=== PATIENT | male | born 1945 | race Caucasian/White ===

== ENCOUNTER 2016-11-28 09:58 | Emergency (ER) | payer MEDICARE ==
[~2016-11-28] VITALS: Ht 182.9 cm; Wt 101.2 kg
[~2016-11-28 09:58] MED LIST: DOXA4TAB2 PO; ESCI10TA PO; ISOS30TA6 PO; METF-303 PO; METO25TA3 PO; PRAV20TA PO; TEMA30CA5 PO
[2016-11-28 10:05] VITALS: BP_SYST 157
--- NOTE | 2016-11-28 10:10 | NUR ---
Patient to ER bed 8 to gown for evaluation. Side rails up. Report given to HAN REAGAN.
--- NOTE | 2016-11-28 10:13 | NUR ---
ER at bedside examining patient.
--- NOTE | 2016-11-28 10:15 | NUR ---
PT PRESENTS TO ED C/O SOB X 1 WEEK. PT HAS NO ACUTE DISTRESS NOTED.PT H/O NIDDM,HTN AND R PARTIAL HEMIPARESIS.PT HAS SLIGHT DIMINISHED BREATH SOUNDS LLL.
--- NOTE | 2016-11-28 10:25 | NUR ---
RT AT BEDISDE FOR BREATHING TX.
[2016-11-28] MEDS ORDERED: DEXAMETHASONE SOD PHOSPHATE 10 MG/ML VIAL IVP ONE (10:30)
[2016-11-28] MEDS ORDERED: IPRATROPIUM/ALBUTEROL SULFATE 3 ML AMPUL.NEB INH ONE (10:30)
--- NOTE | 2016-11-28 10:41 | NUR ---
PT TOLERATED BREATHING TX.PT REPORTS DECREASE IN RESP EFFORT
--- NOTE | 2016-11-28 10:52 | NUR ---
PT MEDICATED. PT TOLERATED WELL.
--- NOTE | 2016-11-28 10:53 | NUR ---
PT MEDICATED TOLERATED WELL.
[2016-11-28 10:54] LABS: BASOPHILS # (AUTO) 0.1 K/uL (0.0-0.2); BASOPHILS % (AUTO) 1.4 % (0.0-2.0); EOSINOPHILS # (AUTO) 0.2 K/uL (0.0-0.4); EOSINOPHILS % (AUTO) 1.5 % (0.0-4.0); HEMATOCRIT 40.9 % (36-54); HEMOGLOBIN 13.7 g/dL (14.0-18.0); LYMPHOCYTES % (AUTO) 28.2 % (20.5-51.5); MEAN CORPUSCULAR HEMOGLOBIN 30 pg (27-31); MEAN CORPUSCULAR HGB CONC 34 % (32-36); MEAN CORPUSCULAR VOLUME 88 fL (79.0-98.0); MONOCYTES # (AUTO) 0.7 K/uL (0.0-1.0); MONOCYTES % (AUTO) 6.9 % (1.7-9.3); NEUTROPHILS # (AUTO) 6.5 K/uL (1.8-7.7); PLATELET COUNT (AUTO) 209 K/uL (130-430); RED BLOOD CELL COUNT(AUTO) 4.63 MIL/uL (4.2-6.2); RED CELL DISTRIBUTION WIDTH 12.4 % (9.0-15.0); WHITE BLOOD COUNT (AUTO) 10.5 K/uL (4.8-10.8)
[2016-11-28 11:03] LABS: CREATININE 1.03 mg/dL (0.55-1.30); POTASSIUM 3.9 mmol/L (3.5-5.1)
[2016-11-28 11:05] LABS: PROTHROMBIN TIME 10.5 SECS (9.5-12.5)
[2016-11-28 11:07] LABS: ALBUMIN 3.9 g/dL (3.4-4.8); TOTAL BILIRUBIN 0.8 mg/dL (0.0-1.0); TOTAL PROTEIN, SERUM 7.7 g/dL (6.4-8.3)
--- NOTE | 2016-11-28 11:50 | NUR ---
PT REPORTS BREATHING IMPROVED.PT HAS NO ACUTE RESP DISTRESS NOTED.
[2016-11-28 13:00] VITALS: BP_SYST 162
--- NOTE | 2016-11-28 13:07 | NUR ---
Patient given written and verbal discharge instructions and verbalizes understanding. ER MD discussed with patient the results and treatment provided. Patient in stable condition. ID arm band removed. IV catheter removed intact and dressing applied, no active bleeding. Rx of Z-PACK,TESSLON PERLES,PREDNISONE given. Patient educated on pain management and to follow up with PMD. Pain Scale 0. Opportunity for questions provided and answered.
--- NOTE | 2016-11-28 13:30 | NUR ---
Received a call from [facility] requesting a clarification for Azythromycin due to interaction with patient medication Lexapro (possible QT prolongation), MD Dr Schneider notified, per Dr Schneider prescription needs to be changed to Doxycicline 100 mg PO BID x 7 days, order clarified to [facility].
== END 2016-11-28 13:07 | disposition home or self-care (01) ==
LOC: SED 09:58
DX: J20.9 Acute bronchitis, unspecified (principal); E11.9 Type 2 diabetes mellitus without complications; I10 Essential (primary) hypertension; Z88.0 Allergy status to penicillin; Z88.5 Allergy status to narcotic agent; Z91.048 Other nonmedicinal substance allergy status; Z85.038 Personal history of other malignant neoplasm of large intestine
CPT/HCPCS: 36415; 71010; 80053; 83605; 83880; 84484; 85025; 85379; 85610; 85730; 87040; 93005; 94640; 96374; 99285; J1100

== ENCOUNTER 2020-04-27 06:43 | Observation (INO) | payer OTHER, SELFPAY ==
[~2020-04-27] VITALS: Ht 182.9 cm; Wt 108.9 kg
[~2020-04-27 06:43] MED LIST changes: -METF-303 PO; +METF-379 PO
[2020-04-27 06:48] VITALS: BP_SYST 172
[2020-04-27 07:35] LABS: BASOPHILS # (AUTO) 0.1 K/uL (0.0-0.2); BASOPHILS % (AUTO) 0.8 % (0.0-2.0); EOSINOPHILS # (AUTO) 0.2 K/uL (0.0-0.4); EOSINOPHILS % (AUTO) 1.9 % (0.0-4.0); HEMATOCRIT 38.4 % (36-54); HEMOGLOBIN 12.7 g/dL (14.0-18.0); LYMPHOCYTES # (AUTO) 2.8 K/uL (1.0-5.5); LYMPHOCYTES % (AUTO) 28.2 % (20.5-51.5); MEAN CORPUSCULAR HEMOGLOBIN 30 pg (27-31); MEAN CORPUSCULAR HGB CONC 33 % (32-36); MEAN CORPUSCULAR VOLUME 90 fL (79.0-98.0); MONOCYTES # (AUTO) 0.8 K/uL (0.0-1.0); MONOCYTES % (AUTO) 8.5 % (1.7-9.3); NEUTROPHILS % (AUTO) 60.6 % (40.0-70.0); PLATELET COUNT (AUTO) 176 K/uL (130-430); RED BLOOD CELL COUNT(AUTO) 4.28 MIL/uL (4.2-6.2); RED CELL DISTRIBUTION WIDTH 14.4 % (9.0-15.0); WHITE BLOOD COUNT (AUTO) 9.9 K/uL (4.8-10.8)
[2020-04-27 07:44] LABS: ANION GAP 9 (5-15); CALCIUM 9.6 mg/dL (8.4-11.0); CHLORIDE 106 mmol/L (98-107); CREATININE 1.19 mg/dL (0.55-1.30); GLUCOSE 133 mg/dL (70-99); POTASSIUM 3.9 mmol/L (3.5-5.1); SODIUM SERUM 143 mmol/L (136-145); UREA NITROGEN, BLOOD 29 mg/dL (8-21)
[2020-04-27 07:48] LABS: PROTHROMBIN TIME 9.9 SECS (9.5-12.5)
[2020-04-27 07:49] LABS: ALANINE AMINOTRANSFERASE 52 U/L (12-78); ALBUMIN 3.7 g/dL (3.4-4.8); ASPARTATE AMINOTRANSFERASE 40 U/L (10-37); TOTAL BILIRUBIN 0.9 mg/dL (0.0-1.0)
[2020-04-27 08:16] LABS: BILIRUBIN,URINE NEGATIVE (NEGATIVE); BLOOD, URINE NEGATIVE (NEGATIVE); CLARITY/URINE CLEAR (CLEAR); COLOR,URINE YELLOW (YELLOW); GLUCOSE,URINE NEGATIVE (NEGATIVE); KETONES,URINE TRACE (NEGATIVE); LEUKOCYTE ESTERASE ,URINE NEGATIVE (NEGATIVE); NITRITE, URINE NEGATIVE (NEGATIVE); PROTEIN URINE NEGATIVE (NEGATIVE)
[2020-04-27 08:25] LABS: BARBITURATE, URINE NEGATIVE (NEG <=200); METHAMPHETAMINES SCREEN,URINE NEGATIVE (NEG <=500); URINE AMPHETAMINE NEGATIVE (NEG <=500); URINE METHADONE NEGATIVE (NEG <=200)
[2020-04-27 08:26] LABS: BENZODIAZEPINE, URINE POSITIVE (NEG <=150); CANNABINOID, URINE NEGATIVE (NEG <=50); COCAINE, URINE NEGATIVE (NEG <=150); OPIATE, URINE POSITIVE (NEG <=100); PHENCYCLIDINE SCREEN,URINE NEGATIVE (NEG <=25); UR TRICYCLIC ANTIDEPRESSANTS NEGATIVE (NEG <=300); URINE OXYCODONE SCREEN NEGATIVE (NEG <=100); URINE PROPOXYPHENE SCREEN NEGATIVE (NEG <=300)
[2020-04-27 09:20] VITALS: BP_SYST 152
[2020-04-27] MEDS ORDERED: DEXTROSE 50% JECT 50 ML DISP.SYRIN IVP PRN (10:00)
[2020-04-27] MEDS ORDERED: INSULIN REGULAR, HUMAN 100 UNITS/ML, 10 ML VIAL (humuLIN R) SUBCUT PRN (10:00)
[2020-04-27] MEDS ORDERED: ATORVASTATIN 10 MG TABLET PO ONE (10:15)
[2020-04-27] MEDS ORDERED: DOXAZOSIN MESYLATE 2 MG TABLET PO ONE (10:15)
[2020-04-27] MEDS ORDERED: ISOSORBIDE MONONITRATE 30 MG TAB.ER.24H PO ONE (10:15)
[2020-04-27] MEDS ORDERED: METOPROLOL SUCCINATE 25 MG TAB.SR.24H (TOPROL XL) PO ONE (10:15)
[2020-04-27] MEDS ORDERED: metFORMIN HCL 500 MG TABLET PO ONE (10:15)
[2020-04-27] MEDS ORDERED: CITALOPRAM HYDROBROMIDE 20 MG TABLET PO ONE (10:15)
[2020-04-27 11:24] VITALS: BP_SYST 147
[2020-04-27] MEDS ORDERED: HYDROcodone/ACETAMIN 7.5-325 MG TAB PO PRN (14:00)
[2020-04-27] MEDS: HYDROcodone/ACETAMIN 7.5-325 MG TAB PO PRN (14:23)
[2020-04-27 15:35] VITALS: BP_SYST 147
[2020-04-27] MEDS: metFORMIN HCL 500 MG TABLET PO SCH (17:45)
[2020-04-27 19:00] VITALS: BP_SYST 137
[2020-04-27 20:00] VITALS: BP_SYST 137
[2020-04-27] MEDS ORDERED: PANTOPRAZOLE SODIUM 40 MG TAB PO ONE (23:45)
[2020-04-27] MEDS ORDERED: OMEPRAZOLE Non-Formulary 20 MG CAPSULE.DR PO SCH (23:45)
[2020-04-27] MEDS ORDERED: TEMAZEPAM 15 MG CAPSULE PO ONE (23:45)
[2020-04-28 00:03] VITALS: BP_SYST 131
[2020-04-28] MEDS: HYDROcodone/ACETAMIN 7.5-325 MG TAB PO PRN (06:03)
[2020-04-28 08:00] VITALS: BP_SYST 137
[2020-04-28] MEDS: metFORMIN HCL 500 MG TABLET PO SCH (08:42)
[2020-04-28] MEDS ORDERED: CITALOPRAM HYDROBROMIDE 20 MG TABLET PO SCH (09:00)
[2020-04-28] MEDS ORDERED: ISOSORBIDE MONONITRATE 30 MG TAB.ER.24H PO SCH (09:00)
[2020-04-28] MEDS ORDERED: DOXAZOSIN MESYLATE 2 MG TABLET PO SCH (09:00)
[2020-04-28] MEDS ORDERED: METOPROLOL SUCCINATE 25 MG TAB.SR.24H (TOPROL XL) PO SCH (09:00)
[2020-04-28] MEDS ORDERED: ATORVASTATIN 10 MG TABLET PO SCH (09:00)
[2020-04-28] MEDS ORDERED: PANTOPRAZOLE SODIUM 40 MG TAB PO SCH (09:00)
[2020-04-28] MEDS ORDERED: FLU VACC QS2020-21(65UP)/PF 0.7 ML/SYRINGE I.M. PRN (09:15)
[2020-04-28 10:31] LABS: CHOLESTEROL 134 mg/dL (<200); HDL CHOLESTEROL 50 mg/dL (>45); LDL CHOLESTEROL 56 mg/dL (<100); TRIGLYCERIDES 230 mg/dL (30-150)
[2020-04-28 12:00] VITALS: BP_SYST 129
[2020-04-28] MEDS ORDERED: LORazepam 2 MG/ML VIAL IVP ONE (13:45)
[2020-04-28] MEDS ORDERED: OMEPRAZOLE Non-Formulary 20 MG CAPSULE.DR PO SCH (13:45)
[2020-04-28 15:47] VITALS: BP_SYST 127
[2020-04-28 16:28] VITALS: BP_SYST 127
[2020-04-28] MEDS ORDERED: TEMAZEPAM 15 MG CAPSULE PO SCH (21:00)
== END 2020-04-28 17:20 | disposition home or self-care (01) ==
LOC: SED 06:43 → STU 08:33
PROVIDERS: ADMIT Internal Medicine Hospice and Palliative Medicine; ATTEND Internal Medicine Hospice and Palliative Medicine
DX: G45.4 Transient global amnesia (principal); Z20.828 Contact with and (suspected) exposure to other viral communicable diseases; M48.02 Spinal stenosis, cervical region; G99.2 Myelopathy in diseases classified elsewhere; G83.81 Brown-Sequard syndrome; F32.9 Major depressive disorder, single episode, unspecified; E11.9 Type 2 diabetes mellitus without complications; E78.5 Hyperlipidemia, unspecified; I10 Essential (primary) hypertension; J44.9 Chronic obstructive pulmonary disease, unspecified; R53.1 Weakness; Z88.0 Allergy status to penicillin; Z79.899 Other long term (current) drug therapy; Z85.038 Personal history of other malignant neoplasm of large intestine; Z98.1 Arthrodesis status; Z87.891 Personal history of nicotine dependence
CPT/HCPCS: 36415 ×2; 70450; 70551; 71045; 80053; 80061; 80307; 81003; 82962 ×2; 84484; 85025; 85610; 85730; 86886; 86900; 86901; 87426; 93005; 93880; 96374; 97110; 97116 ×2; 97162; 99285; G0378 ×2; J1815; J2060

== ENCOUNTER 2022-08-23 10:31 | Day surgery (SDC) | payer OTHER ==
[~2022-08-23] VITALS: Ht 182.9 cm; Wt 104.3 kg
[~2022-08-23 10:31] MED LIST changes: +AMLO5TAB4 PO; +ASPI-1047 PO; +BACL5TAB PO; +CIPR500T5 PO; +CLOP75TA32 PO; -ISOS30TA6 PO; +ISOS30TA85 PO; +LEVO-62 PO; +LYR50 PO; +OMEP-268 PO; +TAMS-11 PO; +TRAM50TA PO
[2022-08-23 18:20] VITALS: BP_SYST 164
== END 2022-08-24 18:26 | disposition home or self-care (01) ==
LOC: SDS 10:31 → SMU 10:32 → SDS 08-24 18:26
PROVIDERS: ATTEND Colon & Rectal Surgery
DX: R19.5 Other fecal abnormalities (principal); D64.9 Anemia, unspecified; K29.80 Duodenitis without bleeding; K44.9 Diaphragmatic hernia without obstruction or gangrene; K57.30 Diverticulosis of large intestine without perforation or abscess without bleeding; K29.50 Unspecified chronic gastritis without bleeding; K62.5 Hemorrhage of anus and rectum; I12.9 Hypertensive chronic kidney disease with stage 1 through stage 4 chronic kidney disease, or unspecified chronic kidney disease; E11.22 Type 2 diabetes mellitus with diabetic chronic kidney disease; N18.30 Chronic kidney disease, stage 3 unspecified; Z88.0 Allergy status to penicillin; Z88.1 Allergy status to other antibiotic agents; Z88.8 Allergy status to other drugs, medicaments and biological substances; Z79.899 Other long term (current) drug therapy; Z20.822 Contact with and (suspected) exposure to COVID-19
CPT/HCPCS: 36415 ×2; 45378; 43239; 87426; 88305; 82962; 82948; 88312; 88313; U0003

== ENCOUNTER 2022-10-10 08:45 | Emergency (ER) | payer OTHER ==
[~2022-10-10] VITALS: Ht 182.9 cm; Wt 102.1 kg
[2022-10-10 08:45] VITALS: BP_SYST 145
[2022-10-10 09:16] LABS: BASOPHILS % (AUTO) 0.5 % (0.0-2.0); EOSINOPHILS # (AUTO) 0.2 K/uL (0.0-0.4); EOSINOPHILS % (AUTO) 2.4 % (0.0-4.0); HEMATOCRIT 36.3 % (36-54); HEMOGLOBIN 11.9 g/dL (14.0-18.0); LYMPHOCYTES # (AUTO) 4.2 K/uL (1.0-5.5); LYMPHOCYTES % (AUTO) 55.6 % (20.5-51.5); MEAN CORPUSCULAR HEMOGLOBIN 29 pg (27-31); MEAN CORPUSCULAR HGB CONC 33 % (32-36); MEAN CORPUSCULAR VOLUME 87 fL (79.0-98.0); MONOCYTES # (AUTO) 0.7 K/uL (0.0-1.0); MONOCYTES % (AUTO) 9.6 % (1.7-9.3); NEUTROPHILS # (AUTO) 2.4 K/uL (1.8-7.7); NEUTROPHILS % (AUTO) 31.9 % (40.0-70.0); PLATELET COUNT (AUTO) 148 K/uL (130-430); RED BLOOD CELL COUNT(AUTO) 4.16 MIL/uL (4.2-6.2); RED CELL DISTRIBUTION WIDTH 14.2 % (9.0-15.0); WHITE BLOOD COUNT (AUTO) 7.6 K/uL (4.8-10.8)
[2022-10-10 09:24] LABS: ANION GAP 8 (5-15); CHLORIDE 102 mmol/L (98-107); GLUCOSE 118 mg/dL (70-99); UREA NITROGEN, BLOOD 30 mg/dL (8-21)
[2022-10-10 09:40] LABS: ALANINE AMINOTRANSFERASE 29 U/L (12-78); ALBUMIN 3.4 g/dL (3.4-4.8); ASPARTATE AMINOTRANSFERASE 17 U/L (10-37); TOTAL BILIRUBIN 0.8 mg/dL (0.0-1.0)
[2022-10-10] MEDS ORDERED: IPRATROPIUM BROM 0.5 MG/2.5 ML VIAL.NEB (ATROVENT) INH ONE (11:00)
[2022-10-10] MEDS ORDERED: ALBUTEROL SULFATE 0.083% 2.5 MG/3 ML VIAL.NEB INH ONE (11:00)
[2022-10-10] MEDS ORDERED: ALBMDI INH (11:25)
[2022-10-10] MEDS ORDERED: PRED20TA PO (11:25)
[2022-10-10 12:18] VITALS: BP_SYST 137
== END 2022-10-10 12:23 | disposition home or self-care (01) ==
LOC: SED 08:45
DX: J40 Bronchitis, not specified as acute or chronic (principal); R05.9 Cough, unspecified; R06.02 Shortness of breath; E11.9 Type 2 diabetes mellitus without complications; I10 Essential (primary) hypertension; Z88.0 Allergy status to penicillin; Z88.1 Allergy status to other antibiotic agents; Z88.6 Allergy status to analgesic agent; Z79.899 Other long term (current) drug therapy; Z20.822 Contact with and (suspected) exposure to COVID-19
CPT/HCPCS: 80053; 83880; 85025; 84484; 36415; 93005; 71045; 94640; 99285; 83605; 87804 ×2; 87426; J7613

== ENCOUNTER 2023-09-12 07:04 | Day surgery (SDC) | payer OTHER ==
[~2023-09-12] VITALS: Ht 182.9 cm; Wt 104.3 kg
[~2023-09-12 07:04] MED LIST changes: +ALBMDI INH; +CLINDAMYCIN PHOS 900 MG/ D5W 50 ML PREMIX IV ONE; +DOXA-8 PO; -DOXA4TAB2 PO; +PRED20TA PO
[2023-09-12 08:09] LABS: BASOPHILS % (AUTO) 0.5 % (0.0-2.0); EOSINOPHILS # (AUTO) 0.1 K/uL (0.0-0.4); EOSINOPHILS % (AUTO) 0.8 % (0.0-4.0); HEMATOCRIT 40.4 % (36-54); HEMOGLOBIN 13.7 g/dL (14.0-18.0); LYMPHOCYTES # (AUTO) 2.7 K/uL (1.0-5.5); LYMPHOCYTES % (AUTO) 28.2 % (20.5-51.5); MEAN CORPUSCULAR HEMOGLOBIN 30 pg (27-31); MEAN CORPUSCULAR HGB CONC 34 % (32-36); MEAN CORPUSCULAR VOLUME 90 fL (79.0-98.0); MONOCYTES # (AUTO) 0.8 K/uL (0.0-1.0); MONOCYTES % (AUTO) 8.1 % (1.7-9.3); NEUTROPHILS # (AUTO) 5.9 K/uL (1.8-7.7); NEUTROPHILS % (AUTO) 62.4 % (40.0-70.0); PLATELET COUNT (AUTO) 226 K/uL (130-430); RED BLOOD CELL COUNT(AUTO) 4.52 MIL/uL (4.2-6.2); RED CELL DISTRIBUTION WIDTH 13.5 % (9.0-15.0); WHITE BLOOD COUNT (AUTO) 9.4 K/uL (4.8-10.8)
[2023-09-12 08:23] LABS: ANION GAP 14 (5-15); CALCIUM 9.9 mg/dL (8.4-11.0); CARBON DIOXIDE 26 mmol/L (23-29); CHLORIDE 104 mmol/L (98-107); CREATININE 1.58 mg/dL (0.55-1.30); GLUCOSE 153 mg/dL (74-106); POTASSIUM 4.1 mmol/L (3.5-5.1); SODIUM SERUM 144 mmol/L (136-145); UREA NITROGEN, BLOOD 23 mg/dL (8-21)
[2023-09-12] MEDS ORDERED: SIMETHICONE 40 MG/0.6 ML ML ONE (08:49)
[2023-09-12] MEDS ORDERED: PROPOFOL 200MG/ 20ML VIAL (DIPRIVAN) IV ONE (09:45)
[2023-09-12] MEDS ORDERED: NS 1000 ML IV.SOLN IV ONE (09:45)
[2023-09-12] MEDS ORDERED: ONDANSETRON HCL 4 MG/2 ML VIAL IVP PRN (10:15)
[2023-09-12] MEDS ORDERED: HYDROmorphone 1 MG/ML INJ. CARTRIDGE IVP PRN ×2 (10:15)
[2023-09-12] MEDS ORDERED: LR 1,000 ML IV SCH (10:15)
[2023-09-12] MEDS ORDERED: LABETALOL HCL 20 MG/4 ML CARTRIDGE IVP ONE (11:10)
[2023-09-12] MEDS: LABETALOL HCL 20 MG/4 ML CARTRIDGE IVP PRN (11:15)
[2023-09-12 12:32] VITALS: O2SAT 95
[2023-09-12 13:11] VITALS: BP_SYST 138; PULSE 74; RESP 16
== END 2023-09-12 12:40 | disposition home or self-care (01) ==
LOC: SDS 07:04 → SMU 07:05 → SDS 12:40
PROVIDERS: ATTEND Colon & Rectal Surgery
DX: D64.9 Anemia, unspecified (principal); K57.30 Diverticulosis of large intestine without perforation or abscess without bleeding; K64.8 Other hemorrhoids; Z85.038 Personal history of other malignant neoplasm of large intestine; E78.5 Hyperlipidemia, unspecified; E11.9 Type 2 diabetes mellitus without complications; E66.9 Obesity, unspecified; Z88.0 Allergy status to penicillin; Z88.5 Allergy status to narcotic agent; Z88.8 Allergy status to other drugs, medicaments and biological substances; Z68.32 Body mass index [BMI] 32.0-32.9, adult; Z79.899 Other long term (current) drug therapy
CPT/HCPCS: 45378; 80048; 85025; 36415; 93005; 82948; G0378; J2704; J7030; J3490